=== PATIENT | male | born 1990 | race Two or more races ===

== ENCOUNTER 2021-06-22 08:00 | Outpatient (CLI) | payer OTHER | END 2021-06-22 08:30 | disposition home or self-care (01) | LOC: PPH VACUNA 08:00 | PROVIDERS: ATTEND Emergency Medicine Pediatric Emergency Medicine | DX: Z23 Encounter for immunization (principal) ==

== ENCOUNTER 2023-11-07 08:38 | Outpatient (CLI) | payer OTHER | END 2023-11-07 08:56 | disposition home or self-care (01) | LOC: RX STUDY 08:38 | PROVIDERS: ATTEND Internal Medicine | DX: R13.10 Dysphagia, unspecified (principal) ==